=== PATIENT | female | born 1995 | race Caucasian/White ===

== ENCOUNTER 2017-03-05 08:54 | Emergency (ER) | payer SELFPAY ==
[2017-03-05 09:04] VITALS: RESP 18
--- NOTE | 2017-03-05 09:13 | EDPHY ---
H & P Stated Complaint: 1 month l flank/l abd pain urinary freq/15 weeks Time Seen by Provider: 03/05/17 09:06 HPI/ROS: CHIEF COMPLAINT: Left flank pain, cloudy urine HISTORY OF PRESENT ILLNESS: Patient is a 21-year-old female who was 15 weeks based on ultrasound who comes to the emergency department complaining left flank pain. She states that she has had mild left flank pain while lying flat for the last month but thought that it was round ligament pain. Over the last few days however it is become more painful and she has noticed cloudy urine. No dysuria. No suprapubic pain. No vaginal bleeding or discharge. No right-sided pain. No chest pain or shortness of breath. No vomiting, no diarrhea. REVIEW OF SYSTEMS: Constitutional: denies: chills, fever, recent illness, recent injury EENTM: denies: blurred vision, double vision, nose congestion Respiratory: denies: cough, shortness of breath Cardiac: denies: chest pain, irregular heart rate, lightheadedness, palpitations Gastrointestinal/Abdominal: See HPI, denies: abdominal pain, diarrhea, nausea, vomiting, blood streaked stools Genitourinary: See HPI Musculoskeletal: denies: joint pain, muscle pain Skin: denies: lesions, rash, jaundice, bruising Neurological: denies: headache, numbness, paresthesia, tingling, dizziness, weakness Hematologic/Lymphatic: denies: blood clots, easy bleeding, easy bruising Immunologic/allergic: denies: HIV/AIDS, transplant EXAM: GENERAL: Well-appearing, well-nourished and in no acute distress. HEAD: Atraumatic, normocephalic. EYES: Pupils equal round and reactive to light, extraocular movements intact, sclera anicteric, conjunctiva are normal. ENT: TMs normal, nares patent, oropharynx clear without exudates. Moist mucous membranes. NECK: Normal range of motion, supple without lymphadenopathy or JVD. LUNGS: Breath sounds clear to auscultation bilaterally and equal. No wheezes rales or rhonchi. HEART: Regular rate and rhythm without murmurs, rubs or gallops. ABDOMEN: Gravid uterus, nontender, no contractions, normoactive bowel sounds. No guarding, no rebound. No masses appreciated. BACK: No CVA tenderness, no spinal tenderness, step-offs or deformities EXTREMITIES: Normal range of motion, no pitting or edema. No clubbing or cyanosis. NEUROLOGICAL: Cranial nerves II through XII grossly intact. Normal speech, normal gait. 5/5 strength, normal movement in all extremities, normal sensation PSYCH: Normal mood, normal affect. SKIN: Warm, dry, normal turgor, no visible rashes or lesions. Source: Patient Exam Limitations: No limitations - Personal History LMP (Females 10-55): Current Tetanus/Diphtheria Vaccine: No - Medical/Surgical History Hx Asthma: No Hx Chronic Respiratory Disease: No Hx Diabetes: No Hx Cardiac Disease: No Hx Renal Disease: No Hx Cirrhosis: No Hx Alcoholism: No Hx HIV/AIDS: No Hx Splenectomy or Spleen Trauma: No Other PMH: denies - Family History Significant Family History: No pertinent family hx - Social History Smoking Status: Never smoked Alcohol Use: Sober Drug Use: None Constitutional: Initial Vital Signs Temperature (C) 36.6 C 03/05/17 09:00 Heart Rate 96 03/05/17 09:00 Respiratory Rate 18 03/05/17 09:00 Blood Pressure 122/76 H 03/05/17 09:00 O2 Sat (%) 99 03/05/17 09:00 O2 Delivery Mode Room Air Allergies/Adverse Reactions: No Known Allergies Allergy (Unverified 03/05/17 09:00) Home Medications: Medication Instructions Recorded NK [No Known Home Meds] 03/05/17 Medical Decision Making - Diagnostics Imaging: Discussed imaging studies w/ bingo caller Radiologist ED Course/Re-evaluation: 10:30 a.m. we discussed the test results. The patient is currently asymptomatic. She states that it really only happens in the morning. We discussed options including further testing she would prefer to follow up with her OBGYN. She states that she only has the symptoms in the morning for about an hour and then a resolved for the rest of the day. We discussed the differential and indications for returning. Differential Diagnosis: Partial list of the Differential diagnosis considered include but were not limited to; round ligament pain, urinary tract infection, kidney stone, contraction and although unlikely based on the history and physical exam, I also considered pre term labor, ovarian cyst, hernia, PID, diverticulitis. I discussed these differential diagnoses and the plan with the patient as well as the usual and expected course. The patient understands that the diagnosis is provisional and that in medicine we are not always correct and that further workup is often warranted. Usual and customary warnings were given. All of the patient's questions were answered. The patient was instructed to return to the emergency department should the symptoms at all worsen or return, otherwise to followup with the physician as we discussed. - Data Points Microbiology Results: MICROBIOLOGY 03/05/17 09:15 Urine,Clean Catch Urine Culture - Preliminary Four [place] Types Departure - Departure Disposition: Home, Routine, Self-Care Clinical Impression: Flank pain Qualifiers: Weeks of gestation: 16 weeks Qualified Code(s): Z3A.16 - 16 weeks gestation of Condition: Fair Instructions: (ED), Flank Pain (ED) Referrals: NONE *PRIMARY CARE P,. [Primary Care Provider] - As per Instructions Kaylan Hein DO [Doctor of Osteopathy] - As per Instructions
[2017-03-05 09:30] LABS: COLOR YELLOW; LEUKOCYTE ESTERASE,URINE NEGATIVE (NEGATIVE); NITRITE,URINE NEGATIVE (NEGATIVE)
[2017-03-05 09:39] LABS: MUCUS TRACE /lpf (NONE-1+)
[2017-03-05 10:50] VITALS: BP 126/75; PULSE 85; TEMP 98.2; O2SAT 97
== END 2017-03-05 10:50 | disposition home or self-care (01) ==
DX: O26.891 Other specified pregnancy related conditions, first trimester (principal); R10.9 Unspecified abdominal pain; Z3A.16 16 weeks gestation of pregnancy